=== PATIENT | female | born 1985 | race Hispanic/Latino ===

== ENCOUNTER 2018-10-05 14:17 | Emergency (ER) | payer OTHER ==
[2018-10-05] MEDS ORDERED: NA CHLORIDE 0.9% 1,000 ML ONE (14:56)
[2018-10-05] MEDS ORDERED: ONDANSETRON 4 MG/2 ML VIAL ONE (14:56)
[2018-10-05] MEDS ORDERED: KETOROLAC 30 MG/ML INJ ONE (15:12)
[2018-10-05 15:27] LABS: BUN Blood Urea Nitrogen 5 mg/dL (7-18); Bicarbonate 24 mmol/L (21-32); Glucose Level 91 mg/dL (74-106); Potassium 3.3 mmol/L (3.5-5.1); Sodium Level 136 mmol/L (136-145)
[2018-10-05 15:37] LABS: Absolute Monocytes 0.4 K/uL (0.1-1.3); Absolute Neutrophil 2.8 K/uL (1.8-8.0); Basophils % 0.3 % (0-1.3); Eosinophils % 2.5 % (0-4.4); Hematocrit 32.6 % (36.0-45.0); Lymphocytes % 23.4 % (15.3-44.8); MPV 8.1 fL (7.6-11.3); Monocytes % 8.5 % (3.3-12.3)
--- NOTE | 2018-10-05 16:05 | ER ---
Nurse's Notes [facility] Name: Jo Farley Age: 33 yrs Sex: Female : 1985 Arrival Date: 10/05/2018 Time: 14:20 Bed 20 Private MD: Diagnosis: Influenza due to certain identified influenza viruses Presentation: 10/05 14:24 Presenting complaint: Patient states: fever, cough, vomiting since Sunday, seen at [facility] on Sunday, negative for flu, symptoms have continued, still running fever and having vomiting. Transition of care: patient was not received from another setting of care. Onset of symptoms was October 05, 2018. Risk Assessment: Do you want to hurt yourself or someone else? Patient reports no desire to harm self or others. Initial Sepsis Screen: Does the patient meet any 2 criteria? No. Patient's initial sepsis screen is negative. Does the patient have a suspected source of infection? No. Patient's initial sepsis screen is negative. Care prior to arrival: None. 14:24 Method Of Arrival: Ambulatory la 14:24 Acuity: KLAUS 3 la1 Historical: - Allergies: 14:25 NKA; la1 - PMHx: 14:25 Hypothyroidism; la1 - PSHx: 14:25 Tubal ligation; la1 - Immunization history:: Adult Immunizations up to date. - Social history:: Smoking status: Patient/guardian denies using tobacco. - Ebola Screening: : No symptoms or risks identified at this time. Screenin:50 Abuse screen: Denies threats or abuse. Nutritional screening: No deficits noted. em Tuberculosis screening: No symptoms or risk factors identified. Fall Risk None identified. Assessment: 14:50 General: Appears in no apparent distress. uncomfortable, Behavior is calm, cooperative. em Pain: Complains of pain in headache and body aches Pain currently is 8 out of 10 on a pain scale. Pain began 4 days ago. Neuro: Level of Consciousness is awake, alert, obeys commands, Oriented to person, place, time, situation, Application Specialist are equal bilaterally Moves all extremities. Gait is steady, Speech is normal, Pupils are PERRLA, Reports headache. Cardiovascular: Capillary refill < 3 seconds Patient's skin is warm and dry. Respiratory: Airway is patent Respiratory effort is even, unlabored, Respiratory pattern is regular, symmetrical, Breath sounds are clear bilaterally. GI: Abdomen is flat, Bowel sounds present X 4 quads. Abd is soft and non tender X 4 quads. Reports nausea, vomiting. EENT: Nares are clear Oral mucosa is moist. Throat is clear is pink Denies difficulty swallowing. Derm: Skin is intact, is healthy with good turgor, Skin is pink, warm \T\ dry. Musculoskeletal: Capillary refill < 3 seconds, Range of motion: intact in all extremities. 14:55 General: The previous assessment is accurate, call light remains within reach. . ss 15:24 Reassessment: Patient appears in no apparent distress at this time. Patient and/or em family updated on plan of care and expected duration. Pain level reassessed. Patient is alert, oriented x 3, equal unlabored respirations, skin warm/dry/pink. reports headache is better, rates pain 2/10 Patient states feeling better. 16:14 Reassessment: Patient appears in no apparent distress at this time. Patient and/or em family updated on plan of care and expected duration. Pain level reassessed. Patient is alert, oriented x 3, equal unlabored respirations, skin warm/dry/pink. Vital Signs: 14:25 BP 120 / 77; Pulse 86; Resp 18; Temp 99.6; Pulse Ox 99% on R/A; Weight 46.72 kg; Height la1 5 ft. 0 in. (152.40 cm); 15:47 BP 133 / 78; Pulse 89; Resp 16; Pulse Ox 100% on R/A; Pain 2/10; em 16:24 BP 125 / 83; Pulse 85; Resp 16; Pulse Ox 99% on R/A; em 14:25 Body Mass Index 20.12 (46.72 kg, 152.40 cm) la1 ED Course: 14:20 Patient arrived in ED. mr 14:25 Triage completed. la1 14:26 Rolf Adame LVN is Primary Nurse. em 14:26 Arm band placed on left wrist. la1 14:27 Liz Stallworth FNP-C is [facility]. kb 14:27 Amborcio Suarez MD is Attending Physician. kb 14:50 Patient has correct armband on for positive identification. Bed in low position. Call em light in reach. Side rails up X2. Pulse ox on. NIBP on. 14:54 Urine collected: clean catch specimen, huesyin colored. dh3 15:00 Initial lab(s) drawn, by me, sent to lab. Inserted saline lock: 22 gauge in right em forearm, using aseptic technique. Blood collected. 16:22 No provider procedures requiring assistance completed. IV discontinued, intact, em bleeding controlled, No redness/swelling at site. Pressure dressing applied. Administered Medications: 15:06 Drug: NS 0.9% 1000 ml Route: IV; Rate: 1000 ml; Site: right forearm; ss 16:09 Follow up: IV Status: Completed infusion; IV Intake: 1000ml em 15:06 Drug: Zofran 4 mg Route: IVP; Site: right forearm; ss 16:08 Follow up: Response: No adverse reaction; Nausea is decreased em 15:06 Drug: TORadol 30 mg Route: IVP; Site: right forearm; ss 16:08 Follow up: Response: No adverse reaction; Pain is decreased em 16:21 Drug: Potassium Chloride 20 mEq Route: PO; em Intake: 16:09 IV: 1000ml; Total: 1000ml. em Outcome: 16:05 Discharge ordered by . kb 16:23 Discharged to home ambulatory, with family. em 16:23 Condition: good 16:23 Discharge instructions given to patient, family, Instructed on discharge instructions, follow up and referral plans. medication usage, Demonstrated understanding of instructions, follow-up care, medications, Prescriptions given X 1. 16:25 Patient left the ED. em Signatures: Liz Stallworth, ELVIRA-C PIT STEWARD-Michele TimaNadya mr AdameRolf, CORK SORTER CORK SORTER em Pita Frazier RN RN Stan Serrano RN RN Char Shipley 3
--- NOTE | 2018-10-05 16:06 | EDPHYS ---
Physician Documentation [facility] Name: Jo Farley Age: 33 yrs Sex: Female : 1985 Arrival Date: 10/05/2018 Time: 14:20 Bed 20 Private MD: ED Physician Ambrocio Suarez HPI: 10/05 16:03 This 33 yrs old Female presents to ER via Ambulatory with complaints of Flu kb Symptoms. 16:03 The patient or guardian reports cough, that is intermittent, described as moderate, kb with no sputum, flu symptoms, arthralgias, low-grade fever, myalgias, no appetite. Onset: The symptoms/episode began/occurred 5 day(s) ago. Severity of symptoms: At their worst the symptoms were moderate, in the emergency department the symptoms are unchanged. Modifying factors: The symptoms are alleviated by nothing, the symptoms are aggravated by nothing. Associated signs and symptoms: Pertinent positives: fever, nausea, rhinorrhea, sore throat, vomiting, Pertinent negatives: chest pain, diarrhea, ear ache. The patient has not experienced similar symptoms in the past. The patient has not recently seen a physician. Historical: - Allergies: 14:25 NKA; la1 - PMHx: 14:25 Hypothyroidism; la1 - PSHx: 14:25 Tubal ligation; la1 - Immunization history:: Adult Immunizations up to date. - Social history:: Smoking status: Patient/guardian denies using tobacco. - Ebola Screening: : No symptoms or risks identified at this time. ROS: 16:02 Neck: Negative for injury, pain, and swelling, Cardiovascular: Negative for chest pain, kb palpitations, and edema, Back: Negative for injury and pain, : Negative for injury, bleeding, discharge, and swelling, MS/Extremity: Negative for injury and deformity, Skin: Negative for injury, rash, and discoloration, Neuro: Negative for headache, weakness, numbness, tingling, and seizure. 16:02 Constitutional: Positive for body aches, chills, fatigue, fever, malaise, poor PO intake, Negative for weight loss. 16:02 ENT: Positive for rhinorrhea, sinus congestion, sore throat. 16:02 Respiratory: Positive for cough, Negative for dyspnea on exertion, hemoptysis, orthopnea, pleurisy, shortness of breath, sputum production, wheezing. 16:02 Abdomen/GI: Positive for nausea and vomiting. Exam: 16:02 Constitutional: This is a well developed, well nourished patient who is awake, alert, kb and in no acute distress. Head/Face: Normocephalic, atraumatic. ENT: Nares patent. No nasal discharge, no septal abnormalities noted. Tympanic membranes are normal and external auditory canals are clear. Oropharynx with no redness, swelling, or masses, exudates, or evidence of obstruction, uvula midline. Mucous membranes moist. Neck: Trachea midline, no thyromegaly or masses palpated, and no cervical lymphadenopathy. Supple, full range of motion without nuchal rigidity, or vertebral point tenderness. No Meningismus. Chest/axilla: Normal chest wall appearance and motion. Nontender with no deformity. No lesions are appreciated. Cardiovascular: Regular rate and rhythm with a normal S1 and S2. No gallops, murmurs, or rubs. Normal PMI, no JVD. No pulse deficits. Respiratory: Lungs have equal breath sounds bilaterally, clear to auscultation and percussion. No rales, rhonchi or wheezes noted. No increased work of breathing, no retractions or nasal flaring. Abdomen/GI: Soft, non-tender, with normal bowel sounds. No distension or tympany. No guarding or rebound. No evidence of tenderness throughout. Skin: Warm, dry with normal turgor. Normal color with no rashes, no lesions, and no evidence of cellulitis. MS/ Extremity: Pulses equal, no cyanosis. Neurovascular intact. Full, normal range of motion. Neuro: Awake and alert, GCS 15, oriented to person, place, time, and situation. Cranial nerves II-XII grossly intact. Motor strength 5/5 in all extremities. Sensory grossly intact. Cerebellar exam normal. Normal gait. Vital Signs: 14:25 BP 120 / 77; Pulse 86; Resp 18; Temp 99.6; Pulse Ox 99% on R/A; Weight 46.72 kg; Height la1 5 ft. 0 in. (152.40 cm); 15:47 BP 133 / 78; Pulse 89; Resp 16; Pulse Ox 100% on R/A; Pain 2/10; em 16:24 BP 125 / 83; Pulse 85; Resp 16; Pulse Ox 99% on R/A; em 14:25 Body Mass Index 20.12 (46.72 kg, 152.40 cm) la1 MDM: 14:27 Patient medically screened. kb 16:01 Data reviewed: vital signs, nurses notes. Data interpreted: Pulse oximetry: on room air kb is 100 %. Interpretation: normal. Counseling: I had a detailed discussion with the patient and/or guardian regarding: the historical points, exam findings, and any diagnostic results supporting the discharge/admit diagnosis, lab results, the need for outpatient follow up, a family practitioner, to return to the emergency department if symptoms worsen or persist or if there are any questions or concerns that arise at home. 10/05 14:44 Order name: CBC with Diff; Complete Time: 16:01 kb 10/05 14:44 Order name: Basic Metabolic Panel; Complete Time: 15:29 kb 10/05 14:44 Order name: [place] Screen Profile; Complete Time: 15:35 kb 10/05 14:44 Order name: Flu; Complete Time: 15:29 kb 10/05 14:44 Order name: Strep; Complete Time: 15:29 kb 10/05 14:56 Order name: Urine Dipstick--Ancillary (enter results) 10/05 14:44 Order name: IV Start; Complete Time: 15:06 kb 10/05 14:56 Order name: Urine --Ancillary (enter results) 10/05 15:26 Order name: Throat Culture [facility] [place] 10/05 14:44 Order name: Urine Dipstick-Ancillary (obtain specimen); Complete Time: 14:54 kb Administered Medications: 15:06 Drug: NS 0.9% 1000 ml Route: IV; Rate: 1000 ml; Site: right forearm; ss 16:09 Follow up: IV Status: Completed infusion; IV Intake: 1000ml em 15:06 Drug: Zofran 4 mg Route: IVP; Site: right forearm; ss 16:08 Follow up: Response: No adverse reaction; Nausea is decreased em 15:06 Drug: TORadol 30 mg Route: IVP; Site: right forearm; ss 16:08 Follow up: Response: No adverse reaction; Pain is decreased em 16:21 Drug: Potassium Chloride 20 mEq Route: PO; em Disposition: 10/05/18 16:05 Discharged to Home. Impression: Influenza due to certain identified influenza viruses. - Condition is Stable. - Discharge Instructions: Influenza, Adult, [id number]. - Prescriptions for Zofran 4 mg Oral Tablet - take 1 tablet by ORAL route every 6 hours As needed; 20 tablet. - Medication Reconciliation Form, Thank You Letter, Antibiotic Education, Prescription Opioid Use form. - Follow up: Emergency Department; When: As needed; Reason: Worsening of condition. Follow up: Private Physician; When: 2 - 3 days; Reason: Recheck today's complaints, Continuance of care, Re-evaluation by your physician. Addendum: 10/10/2018 05:29 Co-signature as Attending Physician, Ambrocio Suarez MD. g s Signatures: Dispatcher [employer] EDNE Liz Stallworth, WOOL DYER-C WOOL DYER-Ckb Rolf Adame, AUXILIARY ENGINEER AUXILIARY ENGINEER em Pita Frazier, RN RN ss Stan Serrano RN RN la1 Ambrocio Suarez MD MD Corrections: (The following items were deleted from the chart) 10/05 15:07 14:59 TROPONIN (EMERG DEPT USE ONLY)+C.LAB.BRZ ordered. [facility] [place] EDNE 16:25 16:05 10/05/2018 16:05 Discharged to Home. Impression: Influenza due to certain em identified influenza viruses. Condition is Stable. Forms are Medication Reconciliation Form, Thank You Letter, Antibiotic Education, Prescription Opioid Use. Follow up: Emergency Department; When: As needed; Reason: Worsening of condition. Follow up: Private Physician; When: 2 - 3 days; Reason: Recheck today's complaints, Continuance of care, Re-evaluation by your physician. kb
[2018-10-05] MEDS ORDERED: POTASSIUM CL SA 10 MEQ TAB PO ONE (16:27)
[2018-10-05 17:41] LABS: Urine Blood 2+ (NEG); Urine Glucose NEGATIVE (NEG); Urine Protein 2+ (NEG); Urine Specific Gravity 1.025 (1.005-1.030)
== END 2018-10-05 16:25 | disposition home or self-care (01) ==
LOC: ER 14:17
DX: J10.1 Influenza due to other identified influenza virus with other respiratory manifestations (principal)
CPT/HCPCS: 36415; 80048; 81003; 81025; 85025; 86308; 87070; 87081; 87804; 96361; 96374; 96375; 99284; J2405; J7030

== ENCOUNTER 2023-12-18 09:19 | Day surgery (SDC) | payer OTHER ==
[2023-12-18] MEDS: SOD FERRIC GLUC COMPLX/SUCROSE 125 MG in NA CHLORIDE 0.9% 100 ML IV ONE (10:21)
[2023-12-18 11:35] VITALS: BP 135/77; TEMP 97.9; O2SAT 100; BMI 22.4
[2023-12-18 11:55] LABS: Absolute Eosinophils 0.1 K/uL (0-0.5); Absolute Lymphocytes (CBC) 1.8 K/uL (0.7-4.9); Absolute Monocytes 0.4 K/uL (0.1-1.3); Absolute Neutrophil 3.7 K/uL (1.8-8.0); Basophils % 0.5 % (0-1.3); Eosinophils % 1.5 % (0-4.4); Hematocrit 38.5 % (36.0-45.0); Hemoglobin 12.3 g/dL (12.0-15.0); Lymphocytes % 29.9 % (15.3-44.8); MCH 25.7 pg (27.0-35.0); MCV 80.4 fL (80-100); MPV 8.2 fL (7.6-11.3); Neutrophils % 62.1 % (41.7-73.7); Platelets 314 thou/uL (152-406); RBC Red Blood Cell Count 4.79 M/uL (3.86-4.86); Red Cell Distribution Width 19.6 % (12.1-15.2)
[2023-12-18 12:23] LABS: Ferritin 106.9 ng/mL (8-388)
== END 2023-12-18 11:45 | disposition home or self-care (01) ==
LOC: DS 09:19
PROVIDERS: ATTEND Obstetrics & Gynecology
DX: D50.0 Iron deficiency anemia secondary to blood loss (chronic) (principal)
CPT/HCPCS: 85025; 36415; 82728; 83540; 84466; 96365; J2916

== ENCOUNTER 2024-09-04 09:58 | Day surgery (SDC) | payer OTHER ==
[2024-09-02 10:34] LABS: Absolute Eosinophils 0.2 K/uL (0-0.5); Absolute Lymphocytes (CBC) 1.5 K/uL (0.7-4.9); Absolute Monocytes 0.3 K/uL (0.1-1.3); Absolute Neutrophil 4.3 K/uL (1.8-8.0); Basophils % 0.4 % (0-1.3); Eosinophils % 3.3 % (0-4.4); Hematocrit 43.2 % (36.0-45.0); Hemoglobin 14.6 g/dL (12.0-15.0); Lymphocytes % 23.1 % (15.3-44.8); MCHC 33.8 g/dL (32.0-36.0); MCV 88.8 fL (80-100); MPV 7.6 fL (7.6-11.3); Monocytes % 4.8 % (3.3-12.3); Neutrophils % 68.4 % (41.7-73.7); Nucleated Red Blood Cells % 0.2 % (0-0); Platelets 349 thou/uL (152-406); RBC Red Blood Cell Count 4.87 M/uL (3.86-4.86); Red Cell Distribution Width 13.5 % (12.1-15.2)
[2024-09-02 10:43] LABS: Specific Gravity 1.025 (1.005-1.030); Sqamous Epithelial <5 /HPF (None Seen); Urine Bacteria None Seen /HPF (<20); Urine Bilirubin NEGATIVE (Negative); Urine Blood 1+ (Negative); Urine Clarity Clear (Clear); Urine Color Yellow (Yellow); Urine Culture Reflex Order NOT NEEDED; Urine Glucose NEGATIVE (Negative); Urine Ketones NEGATIVE (Negative); Urine Microscopic Reflex YN ORDER UMIC; Urine Mucus Slight /HPF (None Seen); Urine Nitrite NEGATIVE (Negative); Urine Protein TRACE (Negative); Urine RBC <5 /HPF (None Seen); Urine Urobilinogen Normal (Normal); Urine WBC <5 /HPF (<5); Urine pH 6.5 (5.0-7.0)
[2024-09-04] MEDS: SCOPOLAMINE HYDROBROMIDE PATCH TD ONE (10:29)
[2024-09-04] MEDS: Ringers Lactate 1,000 ML IV ONE (10:30)
[2024-09-04] MEDS ORDERED: FENTANYL CITR 100 MCG/2 ML ONE ×2 (11:14→12:54)
[2024-09-04] MEDS ORDERED: propofoL 200 MG/20 ML VIAL IV ONE (11:14)
[2024-09-04] MEDS ORDERED: MIDAZOLAM HCL 2 MG/2 ML INJ ONE (11:14)
[2024-09-04] MEDS ORDERED: LIDOCAINE 2% MPF 5 ML VIAL ONE (11:14)
[2024-09-04] MEDS ORDERED: ROCURONIUM 50 MG/5 ML VIAL IV ONE (11:15)
[2024-09-04] MEDS ORDERED: ONDANSETRON 4 MG/2 ML VIAL ONE (11:15)
[2024-09-04] MEDS ORDERED: dexAMETHasone 4 MG/ML VIAL ONE (12:54)
[2024-09-04] MEDS ORDERED: MEPERIDINE HCL 25 MG/ML SYR ONE (12:54)
[2024-09-04] MEDS: BUPIVACAINE 0.25% PF 30 ML VIAL ONE (12:59)
[2024-09-04] MEDS ORDERED: KETOROLAC 30 MG/ML INJ ONE (13:17)
[2024-09-04] MEDS ORDERED: EPHEDRINE SULF 50 MG/ML VIAL ONE (13:19)
[2024-09-04] MEDS ORDERED: GLYCOPYRROLATE 0.2 MG/ML SYR ONE ×2 (13:23→13:48)
[2024-09-04] MEDS ORDERED: Mastisol Adhesive Liq ONE (13:24)
[2024-09-04] MEDS ORDERED: HYDROCODONE/APAP 5/325 MG TAB PO PRN (14:06)
[2024-09-04] MEDS ORDERED: IBUPROFEN 200 MG TAB PO PRN (14:06)
[2024-09-04] MEDS ORDERED: PROMETHAZINE INJ 25 MG/ML AMP IV PRN (14:06)
--- NOTE | 2024-09-04 14:11 | P.BOP ---
Preoperative diagnosis: Left ovarian cyst, deep dyspareunia Postoperative diagnosis: same, sigmoid adhesions, cuff lesion c/w granuloma Primary procedure: Diag lapsc, left oophorectomy, ILENE sigmoid, cautery or cuff granuloma Roving Marker: Akanksha Ludwig Estimated blood loss: 25 Specimen: left ovary, R cuff granuloma Findings: right cuff granuloma, excised+cauterized, appy normal Anesthesia: General Complications: None Transferred to: Recovery Room Condition: Good
[2024-09-04 14:51] VITALS: O2SAT 100
[2024-09-04] MEDS ORDERED: DRISDOL (VITAMIN D=ERGOCALCIFEROL) 50000 UNIT CAP PO SCH (15:00)
[2024-09-04 15:22] VITALS: BP 130/76; TEMP 97.3
--- NOTE | 2024-09-04 22:26 | OP ---
Date of Procedure: 09/04/2024 Surgeon: Leatha Madera MD Postal Mail Carrier: Akanksha Ingram. Preoperative Diagnoses: Left ovarian cyst and deep dyspareunia. Postoperative Diagnoses: Left ovarian cyst, deep dyspareunia, sigmoid adhesions, and granuloma at th e vaginal cuff on the right side. Procedures Performed: 1. Diagnostic laparoscopy, left oophorectomy. 2. Lysis of sigmoid adhesions from the left lateral wall all the way from above the pelvic brim to do wn to the cuff, and removal of the vaginal cuff granuloma and cautery. Anesthesia: General endotracheal. Estimated Blood Loss: Less than 25. Specimens: Granuloma and left ovary. Complications: No complications. Drains: No drains. Patient's Condition: Stable. Findings: There was a significant 1.5 x 1 cm granulation tissue at the right end of the vaginal cuff . The ureter and the vessels were independent, and lateral and superior, respectively. This was com pletely excised and cauterized at the base. The sigmoid adhesions were present from the medial aspect of the base of the IP ligament all the way in the left lateral wall going down to the uterosacral ligament. All the adhesions were taken down s ystematically. The bowel was released before the IP was further exposed. The ureter was identified. The entire ovary was removed. Appendix appeared to be normal. History And Physical: The patient is a 39-year-old who had hysterectomy and right oophorectomy with endometriosis excision, middle of last year. She had recurrent dyspareunia and on the CT scan had a 4.4 cm left ovarian mass. After having discussed, and observed her, the risk of malignancy was very low and that if the pain is unresolved, then it would warrant further surgery. After having observed her for several months, her pain has not resolved and the patient remained concerned about the adnex al mass. We discussed surgical menopause after left oophorectomy. The patient wanted to proceed wit h this, also understanding that if there was any endometriosis noted or any other lesions, that we wo uld take care of it. Procedure In Detail: Informed consent was re-verified. She was taken back to the OR, placed in supi ne fashion on the operating table. General anesthesia was given. She was placed in a dorsal lithotom y position using Cameron stirrups. Abdomen was prepped with ChloraPrep; vulva, vagina, and perineum wi th Betadine and draped in a sterile fashion. Vaginal sponge was placed for retraction and Osman for drainage, attached to a gravity bag. A supraumbilical curvilinear incision was made at the old scar after injecting with 0.25% bupivacaine . Fascia was incised with 11 blade and tagged with 0 Vicryl sutures. Peritoneum was entered sharply and after Ivy was placed, an adequate insufflation was obtained. Site of entry was checked and w as unremarkable. Upper abdominal surface unremarkable. Appendix and right colon unremarkable. Afte r she was placed in a Trendelenburg position, suprapubic and left lower quadrant 5 ports were placed. I used the left lateral most robotic trocar site for the left port. Then, on visualization, there was a cystic mass on the ovary that appeared to be dumbbell shaped with one side larger than the othe r, and significant adhesions of the sigmoid here as well as to the left lateral wall. Then, there wa s a significant lesion like a granuloma at the right end of the cuff, and this was mostly exuberant g ranulation tissue, so plan was to excise this. Excision of the granuloma: The granuloma was picked up with atraumatic graspers from the base, caute rized and cut with the bipolar LigaSure, and handed off for permanent pathology. The base of this wa s then cauterized with a curved tip bipolar to cauterize, so that there was no recurrence, and also m anna sure that the ureter and the vessels were away. Lysis of sigmoid adhesions: These were taken down with sharp scissors from the peritoneal attachment s all the way from the IP ligament to the cuff. Once these were all released systematically, IP liga ment pedicle was opened up further by dissecting the peritoneum lateral to it and then taking down th e IP with the LigaSure, and excising all the rest of the scar from the hysterectomy. All this was solorzano nded off for permanent pathology after it was placed in an Endo Catch bag and removed through the umb ilical port. All trocars were removed under direct vision after thorough irrigation and suction were performed, and there was excellent hemostasis and no evidence of any injury to the ureters. [facility] ie's bed was leveled. Gas was desufflated. Umbilical port was removed. The fascia as closed with tag 0 Vicryl sutures tied to each other and interrupted 4-0 Vicryl sutures for all skin incision yue sures. Osman and the retractor were removed. Instrument, needle, and sponge counts x3 were correct at the end of the case. The patient tolerated the procedure well. She will follow up in 1 week and 3 months. We will start her on hormone therapy. Patch and pellets were both reviewed with the lili george and will start that at 1-week postop. DREW/RAMON Voice ID: [id number] Report ID: [id number]
[2024-09-05] MEDS ORDERED: THYROID 30 MG TAB PO SCH (09:00)
[2024-09-05] MEDS ORDERED: HOME MED 1 EA UNK (Levothyroxine Sodium [Levothyroxine Sodium] 25 MCG Capsule) PO SCH (09:00)
== END 2024-09-04 15:29 | disposition home or self-care (01) ==
LOC: OR 09:58
PROVIDERS: ATTEND Obstetrics & Gynecology
PROC: 0DNN4ZZ Release Sigmoid Colon, Percutaneous Endoscopic Approach (ICD-10-PCS; 2024-09-04)
PROC: 0UBG4ZZ Excision of Vagina, Percutaneous Endoscopic Approach (ICD-10-PCS; 2024-09-04)
PROC: 0UT14ZZ Resection of Left Ovary, Percutaneous Endoscopic Approach (ICD-10-PCS; principal; 2024-09-04 13:00)
DX: N83.12 Corpus luteum cyst of left ovary (principal); N94.12 Deep dyspareunia; K66.0 Peritoneal adhesions (postprocedural) (postinfection); A58 Granuloma inguinale
CPT/HCPCS: 58661; 44180; 49322; 85025; 81001; 36415; 86900; 86850; 86901; 88305; 88307; J2704; J1100; J2003; J2250; J3010 ×2; J2175; J2405; J7120; A4314